=== PATIENT | male | born 1990 | race Caucasian/White ===

== ENCOUNTER 2020-07-04 01:16 | Inpatient (IN) | payer OTHER, SELFPAY ==
[2020-07-04] VITALS (9 sets, daily range): BP systolic 125–139; BP diastolic 64–89; PULSE 95–110; RESP 17–20; TEMP 36.4–36.9; O2SAT 96–98; BMI 25.0
--- NOTE | 2020-07-04 01:47 | ED.PSYCH ---
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 COVID-19 (LEONILA) Negative (Negative) COVID-19 Clin Com See Note 07/05/20 07/05/20 Range/Units 13:28 13:28 WBC (4.8-10.8) X10*3/uL RBC (4.60-5.80) X10*6/uL Hgb (14.0-18.0) g/dl Hct (42-52) % MCV (80-98) fL MCH (27.0-33.0) pg MCHC (31.0-36.0) g/dl RDW (11.0-16.0) % Plt Count (160-400) X10*3/uL MPV (9.4-12.4) fL Immature Gran % (Auto) (0.0-0.4) % Neut % (Auto) (45-73) % Lymph % (Auto) (20-40) % [place] % (Auto) (2-11) % Eos % (Auto) (0-4) % Baso % (Auto) (0-2) % Lymph # (Auto) (1.2-4.9) X10*3/uL [place] # (Auto) (0.1-1.2) X10*3/uL Eos # (Auto) (0.0-0.4) X10*3/uL Baso # (Auto) (0.0-0.2) X10*3/uL Abs Immat Gran (auto) (0.00-0.03) X10*3/uL Absolute Neuts (auto) (2.0-8.3) X10*3/uL Absolute Nucleated RBC (0.0-0.012) X10*3/uL Nucleated RBC % (auto) (0.0-0.2) /100WBC Sodium 138 (135-145) mmol/L Potassium 4.5 (3.3-5.1) mmol/L Chloride 107 (96-108) mmol/L Carbon Dioxide 22 (22-29) mmol/L Anion Gap 14 (12-20) BUN 14 (9-16) mg/dL Creatinine 1.13 (0.5-1.4) mg/dL Estim Creat Clear Calc 90.1 Estimated GFR > 60 Random Glucose 86 (60-115) mg/dL Calcium 9.2 (8.4-10.2) mg/dL Total Bilirubin 0.5 (0.0-1.0) mg/dL AST 14 (5-37) U/L ALT 7 (0-40) U/L Alkaline Phosphatase 107 (39-117) U/L Total Protein 6.6 (6.5-8.0) g/dL Albumin 4.0 (3.5-5.0) g/dL Urine Opiates Screen (Not Detect) Ur Barbiturates Screen (Not Detect) Valproic Acid < 2.0 L (50.0-100.0) mcg/mL Ur Phencyclidine Scrn (Not Detect) Ur Amphetamines Screen (Not Detect) U Benzodiazepines Scrn (Not Detect) Urine Cocaine Screen (Not Detect) U Marijuana (THC) Screen (Not Detect) COVID-19 (LEONILA) (Negative) COVID-19 Clin Com <Nicole NashSAMMIE - Last Filed: 07/09/20 02:31> Lab Results 07/04/20 07/04/20 07/05/20 Range/Units 02:43 03:13 13:28 WBC 10.7 (4.8-10.8) X10*3/uL RBC 5.45 (4.60-5.80) X10*6/uL Hgb 14.1 (14.0-18.0) g/dl Hct 44.8 (42-52) % MCV 82.2 (80-98) fL MCH 25.9 L (27.0-33.0) pg MCHC 31.5 (31.0-36.0) g/dl RDW 14.9 (11.0-16.0) % Plt Count 281 (160-400) X10*3/uL MPV 10.6 (9.4-12.4) fL Immature Gran % (Auto) 0.4 (0.0-0.4) % Neut % (Auto) 81.5 H (45-73) % Lymph % (Auto) 12.9 L (20-40) % [place] % (Auto) 4.0 (2-11) % Eos % (Auto) 0.9 (0-4) % Baso % (Auto) 0.3 (0-2) % Lymph # (Auto) 1.4 (1.2-4.9) X10*3/uL [place] # (Auto) 0.4 (0.1-1.2) X10*3/uL Eos # (Auto) 0.1 (0.0-0.4) X10*3/uL Baso # (Auto) 0.0 (0.0-0.2) X10*3/uL Abs Immat Gran (auto) 0.04 H (0.00-0.03) X10*3/uL Absolute Neuts (auto) 8.7 H (2.0-8.3) X10*3/uL Absolute Nucleated RBC 0.000 (0.0-0.012) X10*3/uL Nucleated RBC % (auto) 0.0 (0.0-0.2) /100WBC Sodium (135-145) mmol/L Potassium (3.3-5.1) mmol/L Chloride (96-108) mmol/L Carbon Dioxide (22-29) mmol/L Anion Gap (12-20) BUN (9-16) mg/dL Creatinine (0.5-1.4) mg/dL Estim Creat Clear Calc Estimated GFR Random Glucose (60-115) mg/dL Calcium (8.4-10.2) mg/dL Total Bilirubin (0.0-1.0) mg/dL AST (5-37) U/L ALT (0-40) U/L Alkaline Phosphatase (39-117) U/L Total Protein (6.5-8.0) g/dL Albumin (3.5-5.0) g/dL Urine Opiates Screen Not Detected (Not Detect) Ur Barbiturates Screen Not Detected (Not Detect) Valproic Acid (50.0-100.0) mcg/mL Ur Phencyclidine Scrn Not Detected (Not Detect) Ur Amphetamines Screen Not Detected (Not Detect) U Benzodiazepines Scrn Not Detected (Not Detect) Urine Cocaine Screen POSITIVE H (Not Detect) U Marijuana (THC) Screen POSITIVE H (Not Detect) COVID-19 (LEONILA) Negative (Negative) COVID-19 Clin Com See Note 07/05/20 07/05/20 Range/Units 13:28 13:28 WBC (4.8-10.8) X10*3/uL RBC (4.60-5.80) X10*6/uL Hgb (14.0-18.0) g/dl Hct (42-52) % MCV (80-98) fL MCH (27.0-33.0) pg MCHC (31.0-36.0) g/dl RDW (11.0-16.0) % Plt Count (160-400) X10*3/uL MPV (9.4-12.4) fL Immature Gran % (Auto) (0.0-0.4) % Neut % (Auto) (45-73) % Lymph % (Auto) (20-40) % [place] % (Auto) (2-11) % Eos % (Auto) (0-4) % Baso % (Auto) (0-2) % Lymph # (Auto) (1.2-4.9) X10*3/uL [place] # (Auto) (0.1-1.2) X10*3/uL Eos # (Auto) (0.0-0.4) X10*3/uL Baso # (Auto) (0.0-0.2) X10*3/uL Abs Immat Gran (auto) (0.00-0.03) X10*3/uL Absolute Neuts (auto) (2.0-8.3) X10*3/uL Absolute Nucleated RBC (0.0-0.012) X10*3/uL Nucleated RBC % (auto) (0.0-0.2) /100WBC Sodium 138 (135-145) mmol/L Potassium 4.5 (3.3-5.1) mmol/L Chloride 107 (96-108) mmol/L Carbon Dioxide 22 (22-29) mmol/L Anion Gap 14 (12-20) BUN 14 (9-16) mg/dL Creatinine 1.13 (0.5-1.4) mg/dL Estim Creat Clear Calc 90.1 Estimated GFR > 60 Random Glucose 86 (60-115) mg/dL Calcium 9.2 (8.4-10.2) mg/dL Total Bilirubin 0.5 (0.0-1.0) mg/dL AST 14 (5-37) U/L ALT 7 (0-40) U/L Alkaline Phosphatase 107 (39-117) U/L Total Protein 6.6 (6.5-8.0) g/dL Albumin 4.0 (3.5-5.0) g/dL Urine Opiates Screen (Not Detect) Ur Barbiturates Screen (Not Detect) Valproic Acid < 2.0 L (50.0-100.0) mcg/mL Ur Phencyclidine Scrn (Not Detect) Ur Amphetamines Screen (Not Detect) U Benzodiazepines Scrn (Not Detect) Urine Cocaine Screen (Not Detect) U Marijuana (THC) Screen (Not Detect) COVID-19 (LEONILA) (Negative) COVID-19 Clin Com <EBEN Rey - Last Filed: 07/09/20 09:25> Discharge Plan Discharge Clinical Impression: Schizoaffective disorder <Koko Adrian MD - Last Filed: 07/22/20 09:14> Patient Disposition: Admitted As Inpatient <Koko Adrian MD - Last Filed: 07/22/20 09:14> Interventions: Admission Worksheet (ED) Last Done: 07/09/20 17:43 <Koko Adrian MD - Last Filed: 07/22/20 09:14> Discharge Date/Time: 07/09/20 17:44 <Koko Adrian MD - Last Filed: 07/22/20 09:14>
[2020-07-04] MEDS: LORazepam 2 MG/ML VIAL IM (02:10)
[2020-07-04] MEDS: Haloperidol Lactate 5 MG/ML VIAL IM (02:10)
[2020-07-04] MEDS: diphenhydrAMINE HCL 50 MG/ML VIAL IM (02:10)
--- NOTE | 2020-07-04 02:10 | PC.NURSE ---
Patient severely agitated mainly towards his mother for calling PD and sending him here, demanding immediate discharge, loud disruptive, assaultive gesture, patient had a long term time over assaulting people, provider came spoke with patient no effect, non compliant with admission process, refused to take PO medication, eventually patient got restraint both mechanically and chemically at 0210 and received Ativan 2 mg IM, bendryl 50 mg IM, & Haldol 5 mg IM, at 0210 with support from security personal. VSS. will continue to monitor on 1:1 for safety and adverse reaction from medication.
[2020-07-04 03:04] LABS: COVID-19 Test Negative (Negative)
[2020-07-04 03:42] LABS: Amphetamine Screen Urine Not Detected (Not Detect); Barbiturates, Urine Not Detected (Not Detect); Benzodiazepines Screen Urine Not Detected (Not Detect); Cannabinoid Screen Urine POSITIVE (Not Detect); Cocaine Screen Urine POSITIVE (Not Detect); Opiate Screen Urine Not Detected (Not Detect); Phencyclidine Screen Urine Not Detected (Not Detect)
--- NOTE | 2020-07-04 04:00 | PC.NURSE ---
Patient restraint discontinued at 0310 after jeromy for the safety, patient is in bed currently resting calm and quietly, no distress reported, requested for food offered sandwich and ry germain, denied distress, will continue to monitor.
--- NOTE | 2020-07-04 07:08 | PC.NURSE ---
Report received. PT currently sleeping, respirations even and unlabored, in no apparent distress. Pt is waiting to be seen by N.
--- NOTE | 2020-07-04 20:19 | PC.NURSE ---
pt upset, angry, walked out of his room in anger about having to wait so long to see bhn. pt states he is not s1 or h1, pt doesnt understand why he needs to be here. pt denies pain, states he takes no drugs yet positive moreno cocaine and thc. pt very hungry and refused the choice on his diner tray and pt was given sandwhiches and was ok with this. this rn talked with the pt and allowed pt to vent with good effect, pt is now back in his room following commands with no loud outbursts.
[2020-07-05] VITALS (8 sets, daily range): BP systolic 111–127; BP diastolic 65–82; PULSE 80–100; RESP 16–19; TEMP 36.4–37; O2SAT 98
[2020-07-05] MEDS: LORazepam 1 MG TABLET PO (00:38)
--- NOTE | 2020-07-05 00:42 | PC.NURSE ---
PT WAS REPORTING SOME ANXIETY, STATED THAT HE WAS NOT TAKING ANXIETY MEDICATIONS PRIOR TO ADMISSION. MEDICATED WITH ATIVAN 1MG PO, WILL CONTINUE TO MONITOR. AWAITING N FOR EVALUATION.
--- NOTE | 2020-07-05 06:58 | PC.NURSE ---
Report received. PT currently sleeping, respirations even and unlabored, in no apparent distress. Pt is inpatient bedsearch.
--- NOTE | 2020-07-05 12:57 | PC.NURSE ---
Pt complained of headache, provider notified, verbal order for 1 time Tylenol.
[2020-07-05] MEDS: Acetaminophen 325 MG TABLET 650 MG PO (12:58)
[2020-07-05 13:33] LABS: MANUAL DIFF FLAG NO
[2020-07-05 13:38] LABS: Basophils Percent Auto 0.3 % (0-2); Eosinophils Absolute Auto 0.1 X10*3/uL (0.0-0.4); Eosinophils Percent Auto 0.9 % (0-4); Hematocrit 44.8 % (42-52); Hemoglobin 14.1 g/dl (14.0-18.0); Imm Gran Abs Auto 0.04 X10*3/uL (0.00-0.03); Imm Gran Pct Auto 0.4 % (0.0-0.4); Lymphocytes Absolute Auto 1.4 X10*3/uL (1.2-4.9); Lymphocytes Percent Auto 12.9 % (20-40); Mean Corpuscular HGB Conc 31.5 g/dl (31.0-36.0); Mean Corpuscular Hemoglobin 25.9 pg (27.0-33.0); Mean Corpuscular Volume 82.2 fL (80-98); Mean Platelet Volume 10.6 fL (9.4-12.4); Monocytes Absolute Auto 0.4 X10*3/uL (0.1-1.2); Neutrophils Absolute Auto 8.7 X10*3/uL (2.0-8.3); Neutrophils Percent Auto 81.5 % (45-73); Platelet Count 281 X10*3/uL (160-400); Red Blood Count 5.45 X10*6/uL (4.60-5.80); Red Cell Distribution Width 14.9 % (11.0-16.0); White Blood Count 10.7 X10*3/uL (4.8-10.8)
[2020-07-05 13:58] LABS: Alanine Aminotransferase 7 U/L (0-40); Alkaline Phosphatase 107 U/L (39-117); Anion Gap 14 (12-20); Aspartate Amino Transferase 14 U/L (5-37); Bilirubin Total 0.5 mg/dL (0.0-1.0); Blood Urea Nitrogen 14 mg/dL (9-16); Calcium 9.2 mg/dL (8.4-10.2); Carbon Dioxide 22 mmol/L (22-29); Chloride 107 mmol/L (96-108); Creatinine Clr Calc Pharmacy 90.1; Estimated Glomerular Filt Rate > 60; Glucose Random 86 mg/dL (60-115); Potassium 4.5 mmol/L (3.3-5.1); Sodium 138 mmol/L (135-145); Total Protein 6.6 g/dL (6.5-8.0)
--- NOTE | 2020-07-05 15:07 | PC.NURSE ---
Pt agitated, wants to leave. Declining any prn medication. Yelling at RN. Currently sitting in hallway chair, engaging in self-dialogue.
--- NOTE | 2020-07-05 17:47 | PC.NURSE ---
PT currently resting, Occasionally can he heard yelling that he wants to leave, pt remaining in behavioral control at this time.
--- NOTE | 2020-07-05 19:36 | PC.NURSE ---
Patient in his bed resting quietly, no distress reported at this time, per report patient had a psych consult today but no report so far, provider notified, will continue to monitor.
[2020-07-05 20:55] LABS: Valproate < 2.0 mcg/mL (50.0-100.0)
[2020-07-05] MEDS: LORazepam 2 MG/ML VIAL IM (21:00)
[2020-07-05] MEDS: Haloperidol Lactate 5 MG/ML VIAL IM (21:11)
[2020-07-05] MEDS: diphenhydrAMINE HCL 50 MG/ML VIAL IM (21:12)
--- NOTE | 2020-07-05 21:29 | PC.NURSE ---
Patient came out of room agitated, angry, loud, disruptive, attempted to pushed the door hard to exit, non [id number], provider notified ordered Ativan 2 mg IM + Benadryl 50 mg IM + Haldol 5 mg IM, mechanical restraint not required as patient agreed to take voluntarily, patient is currently watched on 1:1 for safety, will continue to monitor.
--- NOTE | 2020-07-06 07:20 | PC.NURSE ---
Report received from SERVANDO Berman. Pt resting, resp unlabored.
--- NOTE | 2020-07-06 08:28 | PC.NURSE ---
Pt awake, briefly, to use the bathroom. [facility] called to confirm psych consult.
--- NOTE | 2020-07-06 09:11 | PC.NURSE ---
Pt awake, alert, asking re: plan of care. Aware that he is waiting for psych consult to initiate medications. Pt stated 'it's boring here, that's why I don't like it.' Moved to room 6 w/ access to television.
[2020-07-06 09:15] VITALS: BP 125/77; PULSE 109; RESP 20; TEMP 36.7; O2SAT 97
--- NOTE | 2020-07-06 10:49 | PC.NURSE ---
Pt awake, affect even, no concerns reported, resting in bed at this time.
--- NOTE | 2020-07-06 11:23 | PC.NURSE ---
Report received from SERVANDO Eubanks. Pt asleep at current. No signs of distress. Respirations even and unlabored. Continues to be a section 12 inpatient bed search.
--- NOTE | 2020-07-06 11:58 | PC.NURSE ---
Dr. Elam meeting with pt at bedside
--- NOTE | 2020-07-06 12:03 | PM.PSYCN ---
History of Present Illness Date of Service: 07/06/2020 Chief Complaint: crisis Reason for Consult: Medication management Discussed with referring provider: Yes Sources of Information: patient interviewed and chart reviewed HPI Narrative: patient was brought to the emergency room after his mother consult became concerned that he had been off his medications. Patient also exhibiting more psychotic symptoms according to the patient's mother. Patient states he had been high and cocaine and threw a plant but no one was in the house. He is angry at his mother for calling the apartment manager. On further exploration the patient states he finds medications helpful and would like to resume Depakote and neuroleptics. Patient gets Haldol shot every month by a visiting nurse and remembers getting a shot 2 weeks ago. This will need to be confirmed. Patient acknowledges hearing voices and paranoid. Past Psychiatric History: Multiple hospitalization. Last hospitalization was at [facility] in October 2019. Medical Evaluation Reviewed: Yes Personal & Social History: patient is single lives at home with his mother but states that she is not supportive and often leaves him by himself. Patient has [facility] services and a visiting nurse. [facility] Family History: Not known Social History: lives with mother Substance History: regular use of cocaine and marijuana Trauma History: not known Diagnostics Vital Signs (24Hr): Vital Signs - 24 hr 07/05/20 12:57 07/05/20 17:49 07/05/20 21:00 Temperature 98.5 F 97.5 F Pulse Rate 100 Respiratory Rate 18 18 18 Blood Pressure 127/82 Pulse Oximetry 98 07/05/20 21:15 07/05/20 21:30 07/05/20 21:45 Temperature Pulse Rate Respiratory Rate 18 19 19 Blood Pressure Pulse Oximetry 07/05/20 22:00 07/06/20 09:15 Temperature 98.1 F Pulse Rate 109 H Respiratory Rate 18 20 Blood Pressure 125/77 Pulse Oximetry 97 Body Mass Index 25.0 Labs Results: 07/05/20 13:28 07/05/20 13:28 Labs: Laboratory Results - last 48 hr 07/05/20 07/05/20 07/05/20 13:28 13:28 13:28 WBC 10.7 RBC 5.45 Hgb 14.1 Hct 44.8 MCV 82.2 MCH 25.9 L MCHC 31.5 RDW 14.9 Plt Count 281 MPV 10.6 Immature Gran % (Auto) 0.4 Neut % (Auto) 81.5 H Lymph % (Auto) 12.[address] [place] % (Auto) 4.0 Eos % (Auto) 0.9 Baso % (Auto) 0.3 Lymph # (Auto) 1.4 [place] # (Auto) 0.4 Eos # (Auto) 0.1 Baso # (Auto) 0.0 Abs Immat Gran (auto) 0.04 H Absolute Neuts (auto) 8.7 H Absolute Nucleated RBC 0.000 Nucleated RBC % (auto) 0.0 Sodium 138 Potassium 4.5 Chloride 107 Carbon Dioxide 22 Anion Gap 14 BUN 14 Creatinine 1.13 Estim Creat Clear Calc 90.1 Estimated GFR > 60 Random Glucose 86 Calcium 9.2 Total Bilirubin 0.5 AST 14 ALT 7 Alkaline Phosphatase 107 Total Protein 6.6 Albumin 4.0 Valproic Acid < 2.0 L Mental Status Exam Mental Status Exam Patient Appearance: Appropriate Patient Orientation: Person, Place, Time and Situation Level of Consciousness: Restless ( needed restraints when initially came to the ED) Patient Behavior: Appropriate, Talkative and Restless Mood Description: Labile Affect Description: Labile and Angry Ability to Follow Directions: Good Speech Pattern: Appropriate, Rapid (at times) and Pressured Memory Description: Intact Hallucinations: Auditory Delusions: Paranoid Ideation Thought Process: Racing and Illogical Depressive Symptoms: Increased Anxiety Abnormal Motor Activity Signs and Symptoms: Agitation and Restlessness Judgement: Poor Medications Allergies Allergies Allergy/AdvReac Type Severity Reaction Status Date / Time No Known Allergies Allergy Unverified 01/11/20 17:41 [No Known Allergies*] Assessment & Plan Assessment & Plan (1) Cocaine use disorder, moderate, dependence: Status: Acute Code(s): F14.20 - Cocaine dependence, uncomplicated (2) Schizoaffective disorder: Status: Acute Code(s): F25.9 - Schizoaffective disorder, unspecified (3) Cannabis abuse: Status: Acute Code(s): F12.10 - Cannabis abuse, uncomplicated Recommendations: patient agrees to resume Depakote. Will add p.r.n. Haldol and lorazepam though he feels much calmer now. Need to collect collateral information. Also checked last dose of Haldol Decanoate. Patient is waiting for inpatient bed Greater than 50% of the session was spent on counseling and/or coordination of care
[2020-07-06] MEDS: Divalproex Sodium ER 500 MG TAB.ER.24H PO (12:16)
--- NOTE | 2020-07-06 12:51 | PC.NURSE ---
Pt presenting with bright affect, polite, smiling, irritable edge absent. Currently resting in bed. No complaints at this time.
--- NOTE | 2020-07-06 13:43 | PC.NURSE ---
FANGN at bedside for MSU.
[2020-07-06 16:28] VITALS: BP 111/75; PULSE 100; RESP 18; TEMP 36.7; O2SAT 97
--- NOTE | 2020-07-06 16:38 | PC.NURSE ---
Pt asleep at current. No signs of distress. Respirations even and unlabored.
--- NOTE | 2020-07-06 17:06 | PC.NURSE ---
Late entry 1600: pt reporting that he would like to go home. Pt reminded of process and encouraged to maintain behavioral control- pt aware that he has PRN's available as needed for anxiety.
--- NOTE | 2020-07-06 17:54 | PC.NURSE ---
Pt increasingly anxious, requesting to leave, making multiple calls. Pt became agitated, slamming door, raising voice. Pt aware that he is waiting for inpatient bed, very angry, feels he does not need. With discussion, pt agreed to take Ativan.
[2020-07-06] MEDS: LORazepam 1 MG TABLET PO (17:56)
[2020-07-06] MEDS: HaloperidoL 5 MG TABLET PO (20:16)
--- NOTE | 2020-07-06 20:30 | PC.NURSE ---
Patient compliant with Haldol 5 mg, patient's mood is pleasant, affect congruent to mood, ate and hydrated well, denied distress, will continue to monitor.
--- NOTE | 2020-07-07 07:12 | PC.NURSE ---
Report received from SERVANDO Berman. Pt resting, resp unlabored.
[2020-07-07] MEDS: Divalproex Sodium ER 500 MG TAB.ER.24H PO (09:05)
[2020-07-07 09:32] VITALS: BP 116/77; PULSE 83; RESP 18; TEMP 36.3; O2SAT 97
--- NOTE | 2020-07-07 09:36 | PC.NURSE ---
Pt awokemn for am medications- pt pleasant, cooperative w/ care, no concerns reported.
[2020-07-07 14:00] VITALS: RESP 20
--- NOTE | 2020-07-07 14:25 | PC.NURSE ---
Pt resting, resp unlabored.
--- NOTE | 2020-07-07 17:06 | PC.NURSE ---
pt pleasant, out in common area frequently, engaging in conversation w/ staff at times.
--- NOTE | 2020-07-07 18:46 | PC.NURSE ---
Pt resting, resp
[2020-07-07 18:47] VITALS: BP 122/77; PULSE 98; RESP 20; TEMP 37; O2SAT 97
--- NOTE | 2020-07-07 19:15 | PC.NURSE ---
Per report patient had a uneventful day, no distress reported, mood pleasant affect expansive, appetite good, hydrating well, elimination intact, will continue to monitor.
--- NOTE | 2020-07-07 20:15 | PC.NURSE ---
Patient came out of room reporting anxiety, PRN Haldol 5 mg and Ativan 1 mg administered as ordered and patient compliant with it, pending effect, will continue to monitor.
[2020-07-07] MEDS: LORazepam 1 MG TABLET PO (20:18)
[2020-07-07] MEDS: HaloperidoL 5 MG TABLET PO (20:18)
[2020-07-08] MEDS: diphenhydrAMINE HCL 25 MG TABLET 50 MG PO (01:54)
[2020-07-08 06:00] VITALS: BP 111/66; PULSE 70; RESP 18; TEMP 37.2; O2SAT 99
--- NOTE | 2020-07-08 06:59 | PC.NURSE ---
Report recieved. PT currently sleeping, respirations even and unlabored, in no apparent distress. PT is inpatient bedsearch.
[2020-07-08] MEDS: Divalproex Sodium ER 500 MG TAB.ER.24H PO (09:38)
[2020-07-08 09:51] VITALS: BP 110/59; PULSE 73; RESP 18; TEMP 37; O2SAT 98
[2020-07-08] MEDS: Nicotine 21 MG PATCH.TD24 TRANSDERMA (16:59)
[2020-07-08 17:09] VITALS: BP 114/71; PULSE 102; RESP 18; TEMP 37.2; O2SAT 98
[2020-07-08] MEDS: HaloperidoL 5 MG TABLET PO (23:31)
[2020-07-08] MEDS: LORazepam 1 MG TABLET PO (23:31)
[2020-07-08 23:44] VITALS: BP 118/65; PULSE 98; RESP 18; TEMP 36.8; O2SAT 98
--- NOTE | 2020-07-09 | ECG_ITS ---
Test Reason : MEDICAL CLEARANCE Blood Pressure : / mmHG Vent. Rate : 076 BPM Atrial Rate : 076 BPM P-R Int : 142 ms QRS Dur : 082 ms QT Int : 336 ms P-R-T Axes : 047 092 065 degrees QTc Int : 378 ms Normal sinus rhythm with sinus arrhythmia Rightward axis Nonspecific ST abnormality Abnormal ECG When compared with ECG of 13-OCT-2019 09:26, No significant change was found Referred By: Ellie Baca Electronically Signed By:AMARILYS TOM MD
[2020-07-09 06:00] VITALS: BP 148/75; PULSE 78; RESP 18; TEMP 37; O2SAT 98
--- NOTE | 2020-07-09 07:15 | PC.NURSE ---
Report recieved. PT currently sleeping, respirations even and unlabored, in no apparent distress. PT is inpatient bedsearch.
[2020-07-09] MEDS: Divalproex Sodium ER 500 MG TAB.ER.24H PO ×2 (09:34→18:46)
[2020-07-09 09:45] VITALS: BP 118/70; PULSE 78; RESP 18; TEMP 37.2; O2SAT 99
[2020-07-09 15:54] VITALS: BP 100/61; PULSE 98; RESP 18; TEMP 36.9; O2SAT 98
[2020-07-09 18:00] VITALS: BP 116/79; PULSE 124; TEMP 36.3
[2020-07-09] MEDS: Benztropine Mesylate 1 MG TABLET PO (20:23)
[2020-07-09] MEDS: traZODone HCL 50 MG TABLET PO ×2 (20:23→21:50)
--- NOTE | 2020-07-09 20:45 | PC.ADMIT ---
Pt is a 22 year old Tajik speaking male who presents to from [facility] ED at approx 17:50 on a cv status. Pt signed a 3-day notice on 07/09/20. Pt is covid - Utox + for cocaine and MJ. Pt is known to and had a two chemical restraints and one physical restraint in the [facility] ED POD. Pt arrived at the [facility] via a section 12 initiated by [place] [employer] secondary to threats made against his brothers, breaking things in his Mother's home, and throwing a bicycle at the stove. Pt mentioned that his schizophrenia was getting the best of him and he started listening to his voices. Pt reported throwing objects and making a mess in his families home. Pt reports the family arriving to the mess in the home when they called police on him. Pt reports that he does not like his VNA and that his trazodone medication was being taken away from him. Pt diagnosed with unspecified schizophrenia spectum, adjustment disorders with mixed anxiety and depressed mood. Pt denied SI/HI/VH/AH and pain during his admit. Pt was calm and cooperative on admit, had clear thoughts and stable mood. Start treatment plan and monitor for safety checks.
--- NOTE | 2020-07-09 22:13 | PC.NURSE ---
Pt signed a 3-day notice on 07/09/20 due on 07/12/20.
[2020-07-10 05:40] VITALS: BP 108/64; PULSE 82; RESP 18; TEMP 37.1; O2SAT 98
[2020-07-10 08:16] LABS: Estimated Average Glucose 100 mg/dL; Hemoglobin A1c % 5.1 %
[2020-07-10] MEDS: Nicotine 21 MG PATCH.TD24 TRANSDERMA (08:22)
[2020-07-10] MEDS: Divalproex Sodium ER 500 MG TAB.ER.24H PO ×2 (08:24→16:31)
[2020-07-10 08:34] LABS: Cholesterol 168 mg/dL; HDL Cholesterol 41 mg/dL; LDL Cholesterol Calculated 116 mg/dl; Triglycerides 57 mg/dL
[2020-07-10 08:54] LABS: Free T4 (Free Thyroxine) 1.28 ng/dL (0.71-1.85)
[2020-07-10 09:19] LABS: Folate 6.1 ng/mL (> or = 4.0); Vitamin B12 493 pg/mL (200-900)
[2020-07-10 18:00] VITALS: BP 122/63; PULSE 103; TEMP 36.8; O2SAT 98
--- NOTE | 2020-07-10 20:24 | P.HPPS_ITS ---
HPI Chief Complaint: schizoaffective disorder Sources of Information: patient interviewed, chart reviewed and crisis/core team assessment reviewed HPI Subjective Notes: 3 Day Narrative: Mr. Lee is a 29 year-old male with hx of cocaine dependence and mood disorder who was brought on Section 12 by police after his mother called 911 reporting that pt was threatening to hurt his brothers, breaking TV and other objects at home. In the ED, pt was positive for cocaine. Pt has hx of A&B when using cocaine and has declined outpatient psychiatric and substance use tr eatment. Pt is known to through one previous inpatient admission back in 09/2019 with similar presentation. He was seen by psychiatric provider while in the ED and was restarted on depakote and haldol, medications he was on in the past with good effect. On the unit, Pt present as much calmer, without any explosive or aggressive behaviors. He minimizes use of cocaine and its effect on his explosive and threatening behaviors. Although he does admit that only times when he has been physically aggressive towards others have been when using cocaine. He reports seeing some shadows, hearing voices at times. He reports last time he heard voices was two days ago. Note, that AH subsided without regular use of antipsychotic, although he in the unit, pt agreed to schedule dose of haldol 5mg po BID. He adamantly denies suicidal or homicidal ideation. He reports improved sleep. He is eating and sleeping well. His mother has already petition [address], pt unaware of this. Past Psychiatric History: Inpt: 09/2019- [facility]; 07/2018 [facility]; two other admission in [place]. OP: none Suicide attempts: none Past trials: haldol, depakote Medical Evaluation Reviewed: Yes [facility] Family History: Not known Social History: lives with mother and brother. No working at this time. Substance History: cocaine: onset age unknown, daily, unknown amount Trauma History: not known Diagnostics Vital Signs (24Hr): Vital Signs - 24 hr 07/10/20 05:40 Temperature 98.8 F Pulse Rate 82 Respiratory Rate 18 Blood Pressure 108/64 Pulse Oximetry 98 Body Mass Index 25.0 Labs Results: 07/05/20 13:28 07/05/20 13:28 Labs: Laboratory Results - last 48 hr 07/10/20 07/10/20 07/10/20 07:47 07:47 07:47 Estimat Average Glucose 100 Hemoglobin A1c % 5.1 Triglycerides 57 Cholesterol 168 LDL Cholesterol, Calc 116 HDL Cholesterol 41 Vitamin B12 493 Folate 6.1 TSH 0.70 Free T4 1.28 Meds/Allergies Meds Home Medications Acetaminophen (Acetaminophen 325 Mg Tablet) 650 mg PO Q6H PRN PRN Reason: Headache/Pain Mild Scale (1-3) Al Hydroxide/Mg Hydroxide (Magnesium Hydrox/Alum Hydrox 30 Ml Oral.Susp) 30 ml PO Q6H PRN PRN Reason: Heartburn/Nausea Benztropine Mesylate (Benztropine Mesylate 1 Mg Tablet) 1 mg PO BEDTIME [facility] Last Admin: 07/10/20 20:50 Dose: 1 mg Documented by: Divalproex Sodium (Divalproex Sodium Er 500 Mg Tab.Er.24h) 1,000 mg PO DAILY [facility] Last Admin: 07/11/20 09:11 Dose: 1,000 mg Documented by: Haloperidol (Haloperidol 5 Mg Tablet) 5 mg PO Q6H PRN PRN Reason: anxiety/restlessness Last Admin: 07/08/20 23:31 Dose: 5 mg Documented by: Haloperidol (Haloperidol 5 Mg Tablet) 5 mg PO BEDTIME [facility] Last Admin: 07/10/20 20:51 Dose: 5 mg Documented by: Hydroxyzine HCl (Hydroxyzine Hcl 25 Mg Tablet) 25 mg PO BEDTIME PRN PRN Reason: Anxiety Lorazepam (Lorazepam 1 Mg Tablet) 1 mg PO RQ6H PRN PRN Reason: anxiety/restlessness Last Admin: 07/08/20 23:31 Dose: 1 mg Documented by: Magnesium Hydroxide (Milk Of Magnesia 30 Ml Oral.Susp) 30 ml PO DAILY PRN PRN Reason: Constipation Nicotine (Nicotine 21 Mg Patch.Td24) 21 mg TRANSDERMA DAILY [facility] Last Admin: 07/11/20 09:11 Dose: 21 mg Documented by: Trazodone HCl (Trazodone Hcl 50 Mg Tablet) 50 mg PO BEDTIME PRN PRN Reason: Insomnia Last Admin: 07/09/20 21:50 Dose: 50 mg Documented by: Trazodone HCl (Trazodone Hcl 50 Mg Tablet) 100 mg PO BEDTIME [facility] Last Admin: 07/10/20 20:50 Dose: 100 mg Documented by: Allergies Allergies Allergy/AdvReac Type Severity Reaction Status Date / Time No Known Allergies Allergy Unverified 01/11/20 17:41 [No Known Allergies*] Mental Status Exam Mental Status Exam Narrative: Appearance: casually groomed, good hygiene, in NAD Behavior: calm, cooperative Psychomotor: no agitation or retardation noted Speech: clear, normal rate/rhythm/volume, spontaneous TP: linear TC: no signs of psychosis, future oriented looking forward to return home Mood: good Affect:congruent, non labile AH/VH:none Delusions:none Insight/judgment:poor x 2. SI: none HI: none Memory/cog: alert, oriented x 3. Grossly intact to conversatinal testing Assessment & Plan Assessment & Plan (1) Intermittent explosive disorder in adult: Status: Acute Code(s): F63.81 - Intermittent explosive disorder Assessment and Plan: 1. Increase Depakote to 500mg po BID 2. Schedule haldol 5mg po BID 3. Continue cogentin (2) Cannabis abuse: Status: Acute Code(s): F12.10 - Cannabis abuse, uncomplicated (3) Cocaine use disorder, moderate, dependence: Status: Acute Code(s): F14.20 - Cocaine dependence, uncomplicated Assessment and Plan: Section 35 pending Reason for continued inpatient stay Substantial Risk for: harm to others
[2020-07-10] MEDS: Benztropine Mesylate 1 MG TABLET PO (20:50)
[2020-07-10] MEDS: traZODone HCL 50 MG TABLET 100 MG PO (20:50)
[2020-07-10] MEDS: HaloperidoL 5 MG TABLET PO (20:51)
[2020-07-11 06:15] VITALS: BP 104/64; PULSE 77; RESP 16; TEMP 36.6; O2SAT 97
[2020-07-11] MEDS: Nicotine 21 MG PATCH.TD24 TRANSDERMA (09:11)
[2020-07-11] MEDS: Divalproex Sodium ER 500 MG TAB.ER.24H 1000 MG PO (09:11)
--- NOTE | 2020-07-11 09:17 | PM.PSYDC ---
DS: Providers Provider Date of Service: 07/11/20 Date of admission: 07/09/20 17:08 Date of discharge: 07/11/20 Primary care physician: Unknown Physician Attending physician on discharge: Gi Dietz DS: Diagnosis Discharge Diagnosis (1) Intermittent explosive disorder in adult: Status: Acute (2) Cannabis abuse: Status: Acute (3) Cocaine use disorder, moderate, dependence: Status: Acute DS: Medications Discharge Medications Home Medications: Home Medications Medication Instructions Recorded Confirmed benztropine 1 tab PO BEDTIME 07/04/20 07/04/20 divalproex 1 tab PO DAILY 07/04/20 07/04/20 haloperidol decanoate 1 ml IM Q4W 07/04/20 07/04/20 trazodone 1.5 tab PO BEDTIME PRN 07/04/20 07/04/20 Discharge Plan Discharge Patient Disposition: Home, Self-Care Referrals: Physician,Unknown [Primary Care Provider] - Discharge Medications: New trazodone 50 mg Tablet 100 mg PO BEDTIME 30 Days Qty: 60 RF: 0 haloperidol 5 mg Tablet 5 mg PO BEDTIME 30 Days Qty: 30 RF: 0 divalproex 500 mg Tablet Extended Release 24 Hr 1,000 mg PO DAILY 30 Days Qty: 60 RF: 0 benztropine 1 mg Tablet 1 mg PO BEDTIME Qty: 30 RF: 0 Discontinued trazodone 50 mg tablet 1.5 tab PO BEDTIME PRN (Reason: Insomnia) RF: 0 haloperidol decanoate 100 mg/mL solution 1 ml IM Q4W RF: 0 divalproex 500 mg tablet extended release 24 hr 1 tab PO DAILY RF: 0 benztropine 1 mg tablet 1 tab PO BEDTIME RF: 0 Discharge Orders: Discharge Order (Routine); Ordered 07/11/20 Ordered By: Gi Dietz Diet: regular diet Activity on Discharge: As tolerated Stand Alone Forms: Patient Portal Discharge page Care Plan Goals: 1. take medications as prescribed Health Concerns: 1. follow up with PCP Plan of Treatment: 1. Follow up with referrals 2. Take medications as prescribed Mental Status Exam Mental Status Exam Narrative: Appearance: casually groomed, good hygiene, in NAD Behavior: calm, cooperative Psychomotor: no agitation or retardation noted Speech: clear, normal rate/rhythm/volume, spontaneous TP: linear TC: no signs of psychosis, future oriented looking forward to return home Mood: good Affect:congruent, non labile AH/VH:none Delusions:none Insight/judgment:poor x 2. SI: none HI: none Memory/cog: alert, oriented x 3. Grossly intact to conversatinal testing Patient Appearance: Appropriate Patient Orientation: Person, Place, Time and Situation Level of Consciousness: Restless ( needed restraints when initially came to the ED) Patient Behavior: Appropriate, Talkative and Restless Mood Description: Labile Affect Description: Labile and Angry Ability to Follow Directions: Good Speech Pattern: Appropriate, Rapid (at times) and Pressured Memory Description: Intact Data Data Completed and Pending Completed studies during hospitalization [Text1]: 07/05/20 07/05/20 07/05/20 13:28 13:28 13:28 WBC 10.7 RBC 5.45 Hgb 14.1 Hct 44.8 MCV 82.2 MCH 25.9 L MCHC 31.5 RDW 14.9 Plt Count 281 MPV 10.6 Immature Gran % (Auto) 0.4 Neut % (Auto) 81.5 H Lymph % (Auto) 12.9 L [place] % (Auto) 4.0 Eos % (Auto) 0.9 Baso % (Auto) 0.3 Lymph # (Auto) 1.4 [place] # (Auto) 0.4 Eos # (Auto) 0.1 Baso # (Auto) 0.0 Abs Immat Gran (auto) 0.04 H Absolute Neuts (auto) 8.7 H Absolute Nucleated RBC 0.000 Nucleated RBC % (auto) 0.0 Sodium 138 Potassium 4.5 Chloride 107 Carbon Dioxide 22 Anion Gap 14 BUN 14 Creatinine 1.13 Estim Creat Clear Calc 90.1 Estimated GFR > 60 Random Glucose 86 Estimat Average Glucose Hemoglobin A1c % Calcium 9.2 Total Bilirubin 0.5 AST 14 ALT 7 Alkaline Phosphatase 107 Total Protein 6.6 Albumin 4.0 Triglycerides Cholesterol LDL Cholesterol, Calc HDL Cholesterol Vitamin B12 Folate TSH Free T4 Valproic Acid < 2.0 L 07/10/20 07/10/20 07/10/20 07:47 07:47 07:47 WBC RBC Hgb Hct MCV MCH MCHC RDW Plt Count MPV Immature Gran % (Auto) Neut % (Auto) Lymph % (Auto) [place] % (Auto) Eos % (Auto) Baso % (Auto) Lymph # (Auto) [place] # (Auto) Eos # (Auto) Baso # (Auto) Abs Immat Gran (auto) Absolute Neuts (auto) Absolute Nucleated RBC Nucleated RBC % (auto) Sodium Potassium Chloride Carbon Dioxide Anion Gap BUN Creatinine Estim Creat Clear Calc Estimated GFR Random Glucose Estimat Average Glucose 100 Hemoglobin A1c % 5.1 Calcium Total Bilirubin AST ALT Alkaline Phosphatase Total Protein Albumin Triglycerides 57 Cholesterol 168 LDL Cholesterol, Calc 116 HDL Cholesterol 41 Vitamin B12 493 Folate 6.1 TSH 0.70 Free T4 1.28 Valproic Acid DS: Summary Hospital Course Hospital Course: Mr. Lee is a 29 year-old male with hx of cocaine dependence and mood disorder who was [place] [address] [place] police after his mother called 911 reporting that pt was threatening to hurt his brothers, breaking TV and other objects at home. In the ED, pt was positive for cocaine. Pt has hx of A&B when using cocaine and has declined outpatient psychiatric and substance use treatment. Pt is known to [facility] through one previous inpatient admission back in 09/2019 with similar presentation. He was seen by psychiatric provider while in the ED and was restarted on depakote and haldol, medications he was on in the past with good effect. On the unit, Pt present as much calmer, without any explosive or aggressive behaviors. He minimizes use of cocaine and its effect on his explosive and threatening behaviors. Although he does admit that only times when he has been physically aggressive towards others have been when using cocaine. He reports seeing some shadows, hearing voices at times. He reports last time he heard voices was two days ago. Note, that AH subsided without regular use of antipsychotics, which makes his psychotic features be more related to his substance use. However, in the unit, pt agreed to schedule dose of haldol 5mg po BID. He adamantly denies suicidal or homicidal ideation. He reports improved sleep. He is eating and sleeping well. His mother has already petition [address], pt unaware of this. Collateral information was gathered from his mother, who reports that pt's aggression and explosive behaviors tend to significantly worsened when he is using cocaine but pt lacks insight into the effects of his substance use. Mother filed a [address] 35. Given that there is no signs of imminent risk of harm to self or other due to suicidal or homicidal ideation but rather due to his substance use, primary treatment team in agreement to discharge pt to court for a Section 35 hearing. Past Psychiatric History: Inpt: 09/2019- [facility]; 07/2018 [facility]; two other admission in [place]. OP: none Suicide attempts: none Past trials: rich siegel Time Spent with Patient Time attestation: Total time spent providing and/or coordinating discharge services:
== END 2020-07-11 10:00 | disposition home or self-care (01) | DRG 883 ==
LOC: HO.ED 07-07 16:17 → HO.PM5 07-09 17:21
PROVIDERS: Clinical Nurse Specialist Psychiatric/Mental Health, Adult; Nurse Practitioner Family; Nurse Practitioner Primary Care; Admitting Provider Psychiatry & Neurology Psychiatry; Emergency Provider Emergency Medicine; Visit Provider Social Worker
DX: F63.81 Intermittent explosive disorder (principal); F14.20 Cocaine dependence, uncomplicated; F12.10 Cannabis abuse, uncomplicated; F17.210 Nicotine dependence, cigarettes, uncomplicated; Z71.6 Tobacco abuse counseling; Z20.822 Contact with and (suspected) exposure to COVID-19; Z79.899 Other long term (current) drug therapy
CPT/HCPCS: 36415; 80053; 80061; 80164; 80307; 82607; 82746; 83036; 84439; 84443; 85025; 87635; 93005; 99285; J1200; J2060; Q0163